=== PATIENT | female | born 1945 | race Caucasian/White ===

== ENCOUNTER → 2018-02-13 | Outpatient (CLI) | payer MEDICARE, BC | LOC: MC.RAD 13:20 | DX: Z12.31 Encounter for screening mammogram for malignant neoplasm of breast (principal) ==

== ENCOUNTER → 2020-01-13 | Outpatient (CLI) | payer MEDICARE, BC | LOC: COL.LAB 10:26 | DX: Z20.828 Contact with and (suspected) exposure to other viral communicable diseases (principal) ==

== ENCOUNTER → 2020-01-17 | Emergency (ER) | payer MEDICARE, BC ==
[~2020-01-17] VITALS: Ht 170.2 cm; Wt 58.2 kg
[~2020-01-17] MED LIST: CIPRO 500MG TA500 MG PO
[2020-01-17 09:23] VITALS: BP 147/87; PULSE 99; TEMP 98.3
[2020-01-17 11:08] LABS: BILIRUBIN,TOTAL 0.5 mg/dL (0.0-1.0); CALCIUM 9.4 mg/dL (8.4-10.2); CREATININE, serum 1.05 (0.52-1.25); POTASSIUM 4.1 mmol/L (3.4-5.0); TOTAL PROTEIN 7.2 gm/dL (6.4-8.2)
== END ==
LOC: COL.ER 09:10
PROVIDERS: Physician Assistant
DX: R33.9 Retention of urine, unspecified (principal)

== ENCOUNTER → 2020-03-09 | Outpatient (CLI) | payer MEDICARE, BC ==
[2020-03-09 19:00] LABS: HEMOGLOBIN 10.9 g/dl (12.5-16.0); MEAN CELL VOLUME 90 fl (80.0-100.0); MEAN CORPUSCULAR HEMOGLOBIN 29 pg (27.0-31.0); MEAN CORPUSCULAR HGB CONC 32 g/dl (33.0-37.0); MEAN PLATELET VOLUME 9.9 fl (7.4-10.4); PLATELET COUNT 558 K/mm3 (130-400); RED BLOOD COUNT 3.81 M/mm3 (4.10-5.30); REDCELL DISTRIBUTION WIDTH-CV 15.1 % (11.5-14.5)
[2020-03-09 19:08] LABS: CALCIUM 10.4 mg/dL (8.4-10.2); CREATININE, serum 3.26 (0.52-1.25); POTASSIUM 5.1 mmol/L (3.4-5.0)
[2020-03-09 19:13] LABS: HEMATOCRIT 34.1 % (37.0-47.0)
[2020-03-09 20:30] LABS: ANISOCYTOSIS 1+; BAND 1 % (0-10); HYPOCHROMIA 1+; LYMPHOCYTE 3 % (20.0-51.0); NEUTROPHILS 93 % (42.0-75.2); PLATELET ESTIMATE INCREASED (NORMAL); TOXIC GRANULATION PRESENT
== END ==
LOC: COL.LAB 18:22
DX: Z01.89 Encounter for other specified special examinations (principal)

== ENCOUNTER 2020-09-30 13:01 | Outpatient (RCR) | payer MEDICARE, BC ==
[~2020-09-30] VITALS: Ht 170.2 cm; Wt 54.0 kg
[2020-09-30] VITALS (11 sets, daily range): BP systolic 98–153; BP diastolic 56–79; PULSE 66–89; TEMP 97.5–99.8
[2020-09-30] MEDS ORDERED: SENOKOT8.6 MG PO (14:04)
--- NOTE | 2020-09-30 18:51 | NUR ---
WRONG DOCUMENTATION AT 1835 FOR THIS PT. WRONG PT. PLEASE DISREGARD.
== END 2020-09-30 20:00 | disposition home or self-care (01) ==
LOC: EUO 13:01
DX: C65.1 Malignant neoplasm of right renal pelvis (principal)
CPT/HCPCS: J7050; P9016

== ENCOUNTER → 2021-11-24 | Outpatient (CLI) | payer MEDICARE, BC ==
[~2021-11-24] MED LIST changes: +SENOKOT8.6 MG PO
== END ==
LOC: COL.RAD 10:19
DX: N13.30 Unspecified hydronephrosis (principal); K80.20 Calculus of gallbladder without cholecystitis without obstruction; Z90.5 Acquired absence of kidney; C65.1 Malignant neoplasm of right renal pelvis; R91.8 Other nonspecific abnormal finding of lung field; Z90.6 Acquired absence of other parts of urinary tract; Z96.0 Presence of urogenital implants; Z93.6 Other artificial openings of urinary tract status

== ENCOUNTER → 2022-02-14 | Outpatient (CLI) | payer MEDICARE, BC | LOC: COL.RAD 09:51 | DX: C65.1 Malignant neoplasm of right renal pelvis (principal); C78.7 Secondary malignant neoplasm of liver and intrahepatic bile duct; R91.8 Other nonspecific abnormal finding of lung field; K82.8 Other specified diseases of gallbladder; M89.9 Disorder of bone, unspecified; N13.30 Unspecified hydronephrosis; Z90.5 Acquired absence of kidney; Z90.49 Acquired absence of other specified parts of digestive tract; Z96.0 Presence of urogenital implants ==

== ENCOUNTER 2022-07-14 11:17 | Emergency (ER) | payer MEDICARE, BC ==
[~2022-07-14] VITALS: Ht 170.2 cm; Wt 53.6 kg
[~2022-07-14 11:17] MED LIST changes: +TYLENOL 500MG500 MG PO
[2022-07-14] MEDS ORDERED: TYLENOL 500MG500 MG PO (11:54)
[2022-07-14 12:43] LABS: HEMOGLOBIN 11.8 g/dl (12.5-16.0); MEAN CELL VOLUME 83 fl (80.0-100.0); MEAN CORPUSCULAR HEMOGLOBIN 27 pg (27-31); MEAN CORPUSCULAR HGB CONC 33 g/dl (33.0-37.0); MEAN PLATELET VOLUME 9.1 fl (7.4-10.4); PLATELET COUNT 755 K/mm3 (130-400); RED BLOOD COUNT 4.34 M/mm3 (4.10-5.30); REDCELL DISTRIBUTION WIDTH-CV 15.5 % (11.5-14.5)
[2022-07-14 12:45] LABS: HEMATOCRIT 36.1 % (37.0-47.0)
[2022-07-14 13:00] LABS: ALBUMIN 2.8 gm/dL (3.4-4.8); BILIRUBIN,TOTAL 0.3 mg/dL (0.2-1.2); C-REACTIVE PROTEIN 21.57 mg/dL (0.00-0.50); CALCIUM 11.1 mg/dL (8.4-10.2); CREATININE, serum 2.21 mg/dL (0.57-1.11); POTASSIUM 4.4 mmol/L (3.5-4.5); TOTAL PROTEIN 8.2 gm/dL (6.2-8.1)
[2022-07-14 13:04] LABS: ANISOCYTOSIS 1+; HYPOCHROMIA 1+; LYMPHOCYTE 12 % (20.0-51.0); NEUTROPHILS 83 % (42.0-75.2); PLATELET ESTIMATE INCREASED (NORMAL)
[2022-07-14 19:47] VITALS: BP 107/95; PULSE 97; TEMP 98.1
== END 2022-07-14 19:35 | disposition short-term general hospital (02) ==
LOC: COL.ER 11:17
PROVIDERS: Nurse Practitioner
DX: K56.609 Unspecified intestinal obstruction, unspecified as to partial versus complete obstruction (principal); Z85.05 Personal history of malignant neoplasm of liver; Z96.89 Presence of other specified functional implants
CPT/HCPCS: J1170; J2405; J7030